=== PATIENT | male | born 1950 | race Caucasian/White ===

== ENCOUNTER 2016-03-28 10:15 | Outpatient (CLI) | payer MEDICARE, MEDICAID | END 2016-03-28 10:16 | disposition home or self-care (01) | DX: E11.65 Type 2 diabetes mellitus with hyperglycemia (principal); D50.0 Iron deficiency anemia secondary to blood loss (chronic) ==

== ENCOUNTER 2016-06-25 14:01 | Outpatient (CLI) | payer MEDICARE, MEDICAID | END 2016-06-25 14:02 | disposition home or self-care (01) | DX: E11.65 Type 2 diabetes mellitus with hyperglycemia (principal) ==

== ENCOUNTER 2017-01-28 08:00 | Outpatient (CLI) | payer MEDICARE, MEDICAID ==
[2017-01-28 13:08] LABS: BASOPHILS # (AUTO) 0.1 10^3/uL (0.0-0.1); BASOPHILS % (AUTO) 0.9 %; EOSINOPHILS # (AUTO) 0.4 10^3/uL (0.0-0.7); EOSINOPHILS % (AUTO) 4.9 %; HCT - HEMATOCRIT 42.1 % (42.0-52.0); HGB - HEMOGLOBIN 13.8 g/dL (14.0-18.0); LYMPHOCYTES # (AUTO) 1.3 10^3/uL (1.5-3.5); LYMPHOCYTES % (AUTO) 16.4 %; MEAN CORPUSCULAR HEMOGLOBIN 28.6 pg (27.0-31.0); MEAN CORPUSCULAR HGB CONC 32.6 g/dL (32.0-36.0); MEAN CORPUSCULAR VOLUME 87.6 fL (80.0-94.0); MEAN PLATELET VOLUME 7.7 fL (7.4-11.4); MONOCYTES # (AUTO) 0.6 10^3/uL (0.0-1.0); MONOCYTES % (AUTO) 7.7 %; NEUTROPHILS # (AUTO) 5.6 10^3/uL (1.5-6.6); NEUTROPHILS % (AUTO) 70.1 %; RED BLOOD COUNT 4.81 10^6/uL (4.70-6.10); RED CELL DISTRIBUTION WIDTH 14.1 % (12.0-15.0); UNCORRECTED WHITE BLOOD COUNT 8.1 x10^3/uL; WHITE BLOOD COUNT 8.1 x10^3/uL (4.8-10.8)
[2017-01-28 13:34] LABS: ALBUMIN/GLOBULIN RATIO 1.2 (1.0-2.2); BILIRUBIN,TOTAL 0.3 mg/dL (0.2-1.0); BUN - BLOOD UREA NITROGEN 32 mg/dL (6-20); CALCIUM 9.3 mg/dL (8.5-10.3); CARBON DIOXIDE - CO2 29 mmol/L (21-32); CHLORIDE 102 mmol/L (101-111); CHOL/HDL RATIO 4.8 (<5.0); CHOLESTEROL 144 mg/dL; CREATININE 1.3 mg/dL (0.6-1.2); GFR - MDRD 55 (>89); GLUCOSE 122 mg/dL (70-100); HDL CHOLESTEROL 30 mg/dL; LDL/HDL RATIO 3.1 (<3.6); POTASSIUM 4.8 mmol/L (3.5-5.0); SODIUM 137 mmol/L (135-145); TOTAL PROTEIN 7.4 g/dL (6.7-8.2); TRIGLYCERIDES 111 mg/dL; VLDL CHOLESTEROL 22 mg/dL
[2017-01-28 14:06] LABS: HEMOGLOBIN A1C 0.89 g/dL
== END 2017-01-28 08:01 | disposition home or self-care (01) ==
LOC: LAB.WCP 08:00
PROVIDERS: ATTEND Physician Assistant Medical
DX: E11.65 Type 2 diabetes mellitus with hyperglycemia (principal); D50.0 Iron deficiency anemia secondary to blood loss (chronic); Z12.5 Encounter for screening for malignant neoplasm of prostate
CPT/HCPCS: 36415; 80053; 80061; 83036; 85025; G0103; 84153

== ENCOUNTER 2017-10-07 08:47 | Outpatient (CLI) | payer MEDICARE, MEDICAID ==
[2017-10-07 13:30] LABS: CREATININE 1.1 mg/dL (0.6-1.2)
[2017-10-07 13:43] LABS: HB2 TOTAL 13.7 g/dL; HEMOGLOBIN A1C 1.11 g/dL; HEMOGLOBIN A1C % 9.6 % (4.6-6.2)
== END 2017-10-07 08:48 | disposition home or self-care (01) ==
LOC: LAB.WCP 08:47
PROVIDERS: ATTEND Physician Assistant Medical
DX: E11.65 Type 2 diabetes mellitus with hyperglycemia (principal)
CPT/HCPCS: 36415; 80048; 83036

== ENCOUNTER 2018-05-01 10:36 | Outpatient (CLI) | payer MEDICARE, MEDICAID ==
[2018-05-01 19:48] LABS: HB2 TOTAL 16.1 g/dL; HEMOGLOBIN A1C 1.35 g/dL; HEMOGLOBIN A1C % 9.8 % (4.6-6.2)
[2018-05-01 19:52] LABS: BUN - BLOOD UREA NITROGEN 31 mg/dL (6-20); CALCIUM 9.3 mg/dL (8.5-10.3); CARBON DIOXIDE - CO2 26 mmol/L (21-32); CHLORIDE 102 mmol/L (101-111); CHOL/HDL RATIO 4.6 (<5.0); CHOLESTEROL 138 mg/dL; CREATININE 1.2 mg/dL (0.6-1.2); GFR - MDRD 60 (>89); GLUCOSE 127 mg/dL (70-100); HDL CHOLESTEROL 30 mg/dL; LDL CHOLESTEROL,CALCULATED 91 mg/dL; SODIUM 135 mmol/L (135-145); VLDL CHOLESTEROL 17 mg/dL
== END 2018-05-01 10:37 | disposition home or self-care (01) ==
LOC: LAB.WCP 10:36
PROVIDERS: ATTEND Physician Assistant Medical
DX: E11.8 Type 2 diabetes mellitus with unspecified complications (principal); E78.5 Hyperlipidemia, unspecified; I10 Essential (primary) hypertension
CPT/HCPCS: 36415; 80048; 80061; 83036; 83721

== ENCOUNTER 2018-07-08 08:00 | Outpatient (CLI) | payer MEDICARE, MEDICAID ==
[2018-07-08 13:00] LABS: ALBUMIN 3.8 g/dL (3.2-5.5); ALBUMIN/GLOBULIN RATIO 1.1 (1.0-2.2); BILIRUBIN,TOTAL 0.6 mg/dL (0.2-1.0); CALCIUM 9.1 mg/dL (8.5-10.3); CREATININE 1.2 mg/dL (0.6-1.2); TOTAL PROTEIN 7.3 g/dL (6.7-8.2)
[2018-07-08 13:03] LABS: BASOPHILS # (AUTO) 0.1 10^3/uL (0.0-0.1); BASOPHILS % (AUTO) 0.9 %; EOSINOPHILS # (AUTO) 0.3 10^3/uL (0.0-0.7); EOSINOPHILS % (AUTO) 3.4 %; HGB - HEMOGLOBIN 13.9 g/dL (14.0-18.0); LYMPHOCYTES # (AUTO) 1.1 10^3/uL (1.5-3.5); LYMPHOCYTES % (AUTO) 12.7 %; MEAN CORPUSCULAR HEMOGLOBIN 28.3 pg (27.0-31.0); MEAN CORPUSCULAR HGB CONC 31.8 g/dL (32.0-36.0); MEAN PLATELET VOLUME 8.2 fL (7.4-11.4); MONOCYTES # (AUTO) 0.7 10^3/uL (0.0-1.0); MONOCYTES % (AUTO) 7.6 %; NEUTROPHILS # (AUTO) 6.7 10^3/uL (1.5-6.6); NEUTROPHILS % (AUTO) 75.4 %; PLT - PLATELET COUNT 337 10^3/uL (130-450); RED BLOOD COUNT 4.91 10^6/uL (4.70-6.10); RED CELL DISTRIBUTION WIDTH 14.3 % (12.0-15.0)
[2018-07-08 13:27] LABS: HB2 TOTAL 15.1 g/dL; HEMOGLOBIN A1C 1.18 g/dL; HEMOGLOBIN A1C % 9.3 % (4.6-6.2)
== END 2018-07-08 23:59 | disposition home or self-care (01) ==
LOC: LAB.WCP 08:00
PROVIDERS: ATTEND Physician Assistant Medical
DX: E11.9 Type 2 diabetes mellitus without complications (principal); D50.0 Iron deficiency anemia secondary to blood loss (chronic); Z12.5 Encounter for screening for malignant neoplasm of prostate
CPT/HCPCS: 36415; 83036; G0103; 80053; 84153; 84443; 85025

== ENCOUNTER 2018-10-24 08:00 | Outpatient (CLI) | payer MEDICARE, MEDICAID ==
[2018-10-24 12:17] LABS: CALCIUM 9.1 mg/dL (8.5-10.3); CREATININE 1.3 mg/dL (0.6-1.2)
[2018-10-24 12:30] LABS: HB2 TOTAL 14.7 g/dL; HEMOGLOBIN A1C 1.34 g/dL; HEMOGLOBIN A1C % 10.5 % (4.6-6.2)
== END 2018-10-24 23:59 | disposition home or self-care (01) ==
LOC: LAB.WCP 08:00
PROVIDERS: ATTEND Physician Assistant Medical
DX: E11.65 Type 2 diabetes mellitus with hyperglycemia (principal)
CPT/HCPCS: 36415; 80048; 83036

== ENCOUNTER 2019-01-22 07:00 | Outpatient (CLI) | payer MEDICARE, MEDICAID ==
[2019-01-22 13:22] LABS: BASOPHILS # (AUTO) 0.1 10^3/uL (0.0-0.1); BASOPHILS % (AUTO) 0.7 %; EOSINOPHILS # (AUTO) 0.5 10^3/uL (0.0-0.7); EOSINOPHILS % (AUTO) 5.9 %; HGB - HEMOGLOBIN 14.1 g/dL (14.0-18.0); LYMPHOCYTES # (AUTO) 1.1 10^3/uL (1.5-3.5); LYMPHOCYTES % (AUTO) 12.9 %; MEAN CORPUSCULAR HEMOGLOBIN 29.4 pg (27.0-31.0); MEAN CORPUSCULAR HGB CONC 31.7 g/dL (32.0-36.0); MEAN CORPUSCULAR VOLUME 92.7 fL (80.0-94.0); MEAN PLATELET VOLUME 9.5 fL (7.4-11.4); MONOCYTES # (AUTO) 0.8 10^3/uL (0.0-1.0); MONOCYTES % (AUTO) 9.8 %; NEUTROPHILS # (AUTO) 5.8 10^3/uL (1.5-6.6); NEUTROPHILS % (AUTO) 69.3 %; PLT - PLATELET COUNT 384 10^3/uL (130-450); RED CELL DISTRIBUTION WIDTH 13.4 % (12.0-15.0); WHITE BLOOD COUNT 8.4 x10^3/uL (4.8-10.8)
[2019-01-22 13:29] LABS: ALBUMIN/GLOBULIN RATIO 1.2 (1.0-2.2); ALKALINE PHOSPHATASE 78 IU/L (42-121); ALT ALANINE AMINOTRANSFERASE 17 IU/L (10-60); AST ASPARTATE AMINOTRANSFERASE 13 IU/L (10-42); BILIRUBIN,TOTAL 0.7 mg/dL (0.2-1.0); BUN - BLOOD UREA NITROGEN 28 mg/dL (6-20); CALCIUM 9.2 mg/dL (8.5-10.3); CARBON DIOXIDE - CO2 27 mmol/L (21-32); CHLORIDE 100 mmol/L (101-111); CHOLESTEROL 150 mg/dL; CREATININE 1.2 mg/dL (0.6-1.2); GFR - MDRD 60 (>89); GLUCOSE 187 mg/dL (70-100); HDL CHOLESTEROL 30 mg/dL; LDL CHOLESTEROL,CALCULATED 96 mg/dL; LDL/HDL RATIO 3.2 (<3.6); SODIUM 136 mmol/L (135-145); TOTAL PROTEIN 7.4 g/dL (6.7-8.2); VLDL CHOLESTEROL 24 mg/dL
[2019-01-22 13:31] LABS: HEMOGLOBIN A1C 0.93 g/dL; HEMOGLOBIN A1C % 8.2 % (4.6-6.2)
== END 2019-01-22 23:59 | disposition home or self-care (01) ==
LOC: LAB.WCP 07:00
PROVIDERS: ATTEND Physician Assistant Medical
DX: E78.5 Hyperlipidemia, unspecified (principal); E11.65 Type 2 diabetes mellitus with hyperglycemia; D50.0 Iron deficiency anemia secondary to blood loss (chronic)
CPT/HCPCS: 36415; 80053; 80061; 83036; 83721; 85025

== ENCOUNTER 2021-01-11 10:14 | Outpatient (CLI) | payer MEDICARE, MEDICAID ==
[2021-01-11 18:01] LABS: BASOPHILS # (AUTO) 0.1 10^3/uL (0.0-0.1); BASOPHILS % (AUTO) 0.5 %; EOSINOPHILS # (AUTO) 0.6 10^3/uL (0.0-0.7); EOSINOPHILS % (AUTO) 3.7 %; HCT - HEMATOCRIT 35.1 % (42.0-52.0); HGB - HEMOGLOBIN 10.8 g/dL (14.0-18.0); LYMPHOCYTES # (AUTO) 1.7 10^3/uL (1.5-3.5); LYMPHOCYTES % (AUTO) 10.3 %; MEAN CORPUSCULAR HEMOGLOBIN 28.6 pg (27.0-31.0); MEAN CORPUSCULAR HGB CONC 30.8 g/dL (32.0-36.0); MEAN CORPUSCULAR VOLUME 92.9 fL (80.0-94.0); MONOCYTES # (AUTO) 0.9 10^3/uL (0.0-1.0); MONOCYTES % (AUTO) 5.2 %; NEUTROPHILS # (AUTO) 13.1 10^3/uL (1.5-6.6); NEUTROPHILS % (AUTO) 78.8 %; PLT - PLATELET COUNT 402 10^3/uL (130-450); RED BLOOD COUNT 3.78 10^6/uL (4.70-6.10); RED CELL DISTRIBUTION WIDTH 12.4 % (12.0-15.0); WHITE BLOOD COUNT 16.7 x10^3/uL (4.8-10.8)
[2021-01-11 18:23] LABS: ALBUMIN 3.6 g/dL (3.2-5.5); ALBUMIN/GLOBULIN RATIO 1.1 (1.0-2.2); ALKALINE PHOSPHATASE 81 IU/L (42-121); ALT ALANINE AMINOTRANSFERASE 15 IU/L (10-60); AST ASPARTATE AMINOTRANSFERASE 12 IU/L (10-42); BILIRUBIN,TOTAL 0.6 mg/dL (0.2-1.0); BUN - BLOOD UREA NITROGEN 46 mg/dL (6-20); CALCIUM 9.1 mg/dL (8.5-10.3); CARBON DIOXIDE - CO2 28 mmol/L (21-32); CHLORIDE 98 mmol/L (101-111); CHOL/HDL RATIO 3.8 (<5.0); CHOLESTEROL 121 mg/dL; CREATININE 1.6 mg/dL (0.6-1.2); GFR - MDRD 43 (>89); GLUCOSE 313 mg/dL (70-100); HDL CHOLESTEROL 32 mg/dL; LDL CHOLESTEROL,CALCULATED 56 mg/dL; LDL/HDL RATIO 1.8 (<3.6); POTASSIUM 4.8 mmol/L (3.5-5.0); SODIUM 137 mmol/L (135-145); TRIGLYCERIDES 165 mg/dL; VLDL CHOLESTEROL 33 mg/dL
[2021-01-11 18:28] LABS: THYROID STIMULATING HORMONE 2.12 uIU/mL (0.34-5.60)
[2021-01-11 20:11] LABS: ESTIMATED AVERAGE GLUCOSE 355 mg/dL (70-100)
== END 2021-01-11 23:59 | disposition home or self-care (01) ==
LOC: LAB.WCP 10:14
PROVIDERS: ATTEND Physician Assistant Medical
DX: E11.8 Type 2 diabetes mellitus with unspecified complications (principal); D50.0 Iron deficiency anemia secondary to blood loss (chronic)
CPT/HCPCS: 36415; 80053; 80061; 83036; 83721; 84443; 85025

== ENCOUNTER 2021-04-20 10:02 | Outpatient (CLI) | payer MEDICARE, MEDICAID ==
[2021-04-20 12:56] LABS: BASOPHILS # (AUTO) 0.1 10^3/uL (0.0-0.1); BASOPHILS % (AUTO) 0.6 %; EOSINOPHILS # (AUTO) 0.3 10^3/uL (0.0-0.7); EOSINOPHILS % (AUTO) 3.7 %; HCT - HEMATOCRIT 39.1 % (42.0-52.0); HGB - HEMOGLOBIN 12.4 g/dL (14.0-18.0); LYMPHOCYTES % (AUTO) 11.4 %; MEAN CORPUSCULAR HEMOGLOBIN 27.3 pg (27.0-31.0); MEAN CORPUSCULAR HGB CONC 31.7 g/dL (32.0-36.0); MEAN CORPUSCULAR VOLUME 86.1 fL (80.0-94.0); MEAN PLATELET VOLUME 10.3 fL (7.4-11.4); MONOCYTES # (AUTO) 0.6 10^3/uL (0.0-1.0); MONOCYTES % (AUTO) 7.2 %; NEUTROPHILS # (AUTO) 6.7 10^3/uL (1.5-6.6); NEUTROPHILS % (AUTO) 76.1 %; PLT - PLATELET COUNT 377 10^3/uL (130-450); RED BLOOD COUNT 4.54 10^6/uL (4.70-6.10); RED CELL DISTRIBUTION WIDTH 12.7 % (12.0-15.0); WHITE BLOOD COUNT 8.9 x10^3/uL (4.8-10.8)
[2021-04-20 13:04] LABS: CREATININE 2.4 mg/dL (0.6-1.2); ESTIMATED AVERAGE GLUCOSE 355 mg/dL (70-100); POTASSIUM 4.5 mmol/L (3.5-5.0)
== END 2021-04-20 10:03 | disposition home or self-care (01) ==
LOC: LAB.N 10:02
PROVIDERS: ATTEND Physician Assistant Medical
DX: E11.22 Type 2 diabetes mellitus with diabetic chronic kidney disease (principal); E11.8 Type 2 diabetes mellitus with unspecified complications; N18.9 Chronic kidney disease, unspecified; D72.829 Elevated white blood cell count, unspecified
CPT/HCPCS: 36415; 80048; 83036; 85025

== ENCOUNTER 2021-05-15 11:31 | Outpatient (CLI) | payer MEDICARE, MEDICAID ==
[2021-05-15 18:14] LABS: CALCIUM 9.2 mg/dL (8.5-10.3); POTASSIUM 4.8 mmol/L (3.5-5.0)
== END 2021-05-15 11:32 | disposition home or self-care (01) ==
LOC: LAB.N 11:31
PROVIDERS: ATTEND Physician Assistant Medical
DX: N18.9 Chronic kidney disease, unspecified (principal)
CPT/HCPCS: 36415; 80048

== ENCOUNTER 2021-07-13 11:22 | Outpatient (CLI) | payer MEDICARE, MEDICAID ==
[2021-07-13 18:00] LABS: BASOPHILS # (AUTO) 0.1 10^3/uL (0.0-0.1); BASOPHILS % (AUTO) 0.9 %; EOSINOPHILS # (AUTO) 0.2 10^3/uL (0.0-0.7); EOSINOPHILS % (AUTO) 2.4 %; HCT - HEMATOCRIT 33.3 % (42.0-52.0); HGB - HEMOGLOBIN 10.3 g/dL (14.0-18.0); LYMPHOCYTES # (AUTO) 0.8 10^3/uL (1.5-3.5); MEAN CORPUSCULAR HEMOGLOBIN 27.4 pg (27.0-31.0); MEAN CORPUSCULAR HGB CONC 30.9 g/dL (32.0-36.0); MEAN CORPUSCULAR VOLUME 88.6 fL (80.0-94.0); MEAN PLATELET VOLUME 10.7 fL (7.4-11.4); MONOCYTES # (AUTO) 0.7 10^3/uL (0.0-1.0); MONOCYTES % (AUTO) 7.3 %; NEUTROPHILS # (AUTO) 7.6 10^3/uL (1.5-6.6); NEUTROPHILS % (AUTO) 80.8 %; PLT - PLATELET COUNT 372 10^3/uL (130-450); RED BLOOD COUNT 3.76 10^6/uL (4.70-6.10); RED CELL DISTRIBUTION WIDTH 14.9 % (12.0-15.0); WHITE BLOOD COUNT 9.4 x10^3/uL (4.8-10.8)
[2021-07-13 18:04] LABS: ALBUMIN 3.4 g/dL (3.2-5.5); ALBUMIN/GLOBULIN RATIO 0.9 (1.0-2.2); ALKALINE PHOSPHATASE 98 IU/L (42-121); ALT ALANINE AMINOTRANSFERASE 20 IU/L (10-60); AST ASPARTATE AMINOTRANSFERASE 20 IU/L (10-42); BILIRUBIN,TOTAL 0.7 mg/dL (0.2-1.0); BUN - BLOOD UREA NITROGEN 44 mg/dL (6-20); CALCIUM 8.7 mg/dL (8.5-10.3); CARBON DIOXIDE - CO2 22 mmol/L (21-32); CHLORIDE 108 mmol/L (101-111); CHOL/HDL RATIO 3.2 (<5.0); CHOLESTEROL 117 mg/dL; CREATININE 2.1 mg/dL (0.6-1.2); GFR - MDRD 31 (>89); GLUCOSE 100 mg/dL (70-100); HDL CHOLESTEROL 37 mg/dL; LDL CHOLESTEROL,CALCULATED 70 mg/dL; LDL/HDL RATIO 1.9 (<3.6); POTASSIUM 4.7 mmol/L (3.5-5.0); SODIUM 140 mmol/L (135-145); TOTAL PROTEIN 7.4 g/dL (6.7-8.2); TRIGLYCERIDES 52 mg/dL; VLDL CHOLESTEROL 10 mg/dL
[2021-07-13 21:05] LABS: ESTIMATED AVERAGE GLUCOSE 200 mg/dL (70-100); HEMOGLOBIN A1c% 8.6 % (4.27-6.07)
== END 2021-07-13 11:23 | disposition home or self-care (01) ==
LOC: LAB.N 11:22
PROVIDERS: ATTEND Physician Assistant Medical
DX: E11.8 Type 2 diabetes mellitus with unspecified complications (principal); E78.5 Hyperlipidemia, unspecified; D50.0 Iron deficiency anemia secondary to blood loss (chronic)
CPT/HCPCS: 36415; 80053; 80061; 83036; 83721; 85025

== ENCOUNTER 2021-07-16 12:59 | Inpatient (IN) | payer MEDICARE, MEDICAID ==
--- NOTE | 2021-07-16 13:09 | ED Physician Documentation ---
PD HPI DYSPNEA - Stated complaint Stated Complaint: SOA - Chief complaint Chief Complaint: Resp - History obtained from History obtained from: Patient - History of Present Illness Timing - onset: How many days ago (5-6) Timing - onset during: Light activity, Exertion (initially with activity, now with just walking to bathroom.) Timing - duration: Days Timing - details: Gradual onset, Still present Inciting event(s): No: URI Improved by: Rest Worsened by: Exertion, Laying flat Associated symptoms: Bilateral edema (mild). No: Fever, Cough, Wheezing, Palpitations Similar symptoms before: Diagnosis (had pneumonia with empyema in 2014-mita. No recent dyspnea symptoms prior to this past week.) Recently seen: Not recently seen Review of Systems Constitutional: denies: Fever, Chills Nose: denies: Rhinorrhea / runny nose, Congestion Throat: denies: Sore throat Cardiac: reports: Chest pain / pressure, Pedal edema. denies: Palpitations, Calf pain Respiratory: reports: Dyspnea. denies: Cough GI: denies: Abdominal Pain, Nausea, Vomiting, Diarrhea, Bloody / black stool Musculoskeletal: reports: Extremity swelling (bilateral leg edema the past few weeks.) Neurologic: reports: Generalized weakness. denies: Near syncope, Altered mental status, Headache Immunocompromised: denies: Immunocompromised PD PAST MEDICAL HISTORY - Past Medical History Cardiovascular: Hypertension, High cholesterol, Other (no known history of atrial fib. ) Respiratory: Other Endocrine/Autoimmune: Type 2 diabetes GI: None : None HEENT: None Psych: None Musculoskeletal: None - Past Surgical History Past Surgical History: No - Present Medications Home Medications: Ambulatory Orders Medication Instructions Recorded Confirmed Aspirin [Aspir 81] 81 mg PO DAILY 07/30/13 11/06/18 Felodipine [Felodipine ER] 10 mg PO DAILY 07/30/13 11/06/18 Ferrous Sulfate 325 mg PO DAILY 07/30/13 11/06/18 Losartan [Cozaar] 50 mg PO DAILY 07/30/13 11/06/18 Metformin HCl 500 mg PO BIDWM 07/30/13 11/06/18 Simvastatin [Zocor] 40 mg PO DAILY 07/30/13 11/06/18 hydroCHLOROthiazide 25 mg PO DAILY 07/30/13 11/06/18 [Hydrochlorothiazide] Canagliflozin [Invokana] 300 mg PO DAILY 05/02/16 11/06/18 Fluticasone [Flonase] 1 sprays KRISTAL BID PRN 05/02/16 11/06/18 Cyanocobalamin (Vitamin B-12) 1,000 mcg PO DAILY 11/06/18 11/06/18 [Vitamin B-12] Insulin Aspart [NovoLOG] 2 - 20 units SUBQ BIDWM 11/06/18 11/06/18 Insulin Glargine,Hum.rec.anlog 65 unit SUBQ QDBREAKFAST 11/06/18 11/06/18 [Basaglar Kwikpen U-100] - Allergies Allergies/Adverse Reactions: Allergies Allergy/AdvReac Type Severity Reaction Status Date / Time No Known Drug Allergies Allergy Verified 07/16/21 13:01 - Living Situation Living Situation: reports: Alone Living Arrangement: reports: At home (lives in a single wide trailer by himself. He says he does his own ADLs.) - Social History Does the pt smoke?: Yes Smoking Status: Former smoker Does the pt drink ETOH?: Yes Does the pt have substance abuse?: No - Family History Family history: reports: CAD - Immunizations Immunizations are current?: Yes PD ED PE NORMAL - Vitals Vital signs reviewed: Yes (hypoxic on RA) - General General: Alert and oriented X 3, Well developed/nourished (long, uncombed hair, but otherwise clean. ) - HEENT HEENT: Moist mucous membranes, Pharynx benign - Neck Neck: Supple, no meningeal sign, No adenopathy - Cardiac Cardiac: No: RRR (irregular but rate 90-105) - Respiratory Respiratory: Other (sitting up most comfortable position.). No: Clear bilaterally (Bibasilar crackles about a third [address] way on both sides. Some slight diminished on the right base. No wheezes noted. No prolonged expirations.) - Abdomen Abdomen: Soft, Non tender - Male Male : Deferred - Rectal Rectal: Deferred - Back Back: No CVA TTP - Derm Derm: Normal color, Warm and dry - Extremities Extremities: No calf tenderness / cord, Other (1+ edema in both lower legs/shins. ) - Neuro Neuro: Alert and oriented X 3, No motor deficit, Normal speech Results - Vitals Vitals: Vital Signs - 24 hr 05/04/0807/16/21 07/16/21 13:01 13:31 13:35 Temperature 36.5 C Heart Rate 100 Respiratory 22 Rate Blood Pressure 134/90 H O2 Saturation 92 85 L 88 L 07/16/21 07/16/21 07/16/21 13:42 13:56 14:15 Temperature Heart Rate 92 Respiratory 16 Rate Blood Pressure O2 Saturation 91 L 94 07/16/21 15:06 Temperature Heart Rate 96 Respiratory 24 Rate Blood Pressure 149/84 H O2 Saturation 97 Oxygen O2 Source Nasal cannula Oxygen Flow Rate 4 - EKG (time done) 14:11 Rate: Rate (enter#) (83) Rhythm: Atrial fibrillation [place]: Normal QRS: Normal Ischemia: Normal ST segments. No: ST elevation c/w ischemia, ST depression - Labs Labs: Laboratory Tests 07/16/21 07/16/21 07/16/21 14:00 14:00 14:00 WBC 8.9 RBC 3.65 L Hgb 10.1 L Hct 32.2 L MCV 88.2 MCH 27.7 MCHC 31.4 L RDW 15.2 H Plt Count 358 MPV 9.8 Neut # (Auto) 7.1 H Lymph # (Auto) 0.9 L Christian # (Auto) 0.6 Eos # (Auto) 0.1 Baso # (Auto) 0.1 Absolute Nucleated RBC 0.00 Nucleated RBC % 0.0 Sodium 137 Potassium 4.6 Chloride 105 Carbon Dioxide 22 Anion Gap 10.0 BUN 41 H Creatinine 2.0 H Estimated GFR (MDRD) 33 L Glucose 325 H Calcium 8.5 Magnesium 1.9 Total Bilirubin 0.5 AST 18 ALT 21 Alkaline Phosphatase 94 Troponin I High Sens 49.3 H* B-Natriuretic Peptide Total Protein 7.1 Albumin 3.3 Globulin 3.8 Albumin/Globulin Ratio 0.9 L Lipase 39 Nasal Adenovirus (PCR) Nasal B. parapertussis DNA (PCR) Nasal Coronavir 229E PCR Nasal Coronavir HKU1 PCR Nasal Coronavir NL63 PCR Nasal Coronavir OC43 PCR Nasal Enterovir/Rhinovir PCR Nasal Influenza B PCR Nasal Influenza A PCR Nasal Parainfluen 1 PCR Nasal Parainfluen 2 PCR Nasal Parainfluen 3 PCR Nasal Parainfluen 4 PCR Nasal RSV (PCR) Nasal B.pertussis DNA PCR Nasal C.pneumoniae (PCR) Kristal Human Metapneumo PCR Nasal M.pneumoniae (PCR) Nasal SARS-CoV-2 (PCR) 07/16/21 07/16/21 14:00 14:04 WBC RBC Hgb Hct MCV MCH MCHC RDW Plt Count MPV Neut # (Auto) Lymph # (Auto) Christian # (Auto) Eos # (Auto) Baso # (Auto) Absolute Nucleated RBC Nucleated RBC % Sodium Potassium Chloride Carbon Dioxide Anion Gap BUN Creatinine Estimated GFR (MDRD) Glucose Calcium Magnesium Total Bilirubin AST ALT Alkaline Phosphatase Troponin I High Sens B-Natriuretic Peptide 929 H Total Protein Albumin Globulin Albumin/Globulin Ratio Lipase Nasal Adenovirus (PCR) NOT DETECTED Nasal B. parapertussis DNA (PCR) NOT DETECTED Nasal Coronavir 229E PCR NOT DETECTED Nasal Coronavir HKU1 PCR NOT DETECTED Nasal Coronavir NL63 PCR NOT DETECTED Nasal Coronavir OC43 PCR NOT DETECTED Nasal Enterovir/Rhinovir PCR NOT DETECTED Nasal Influenza B PCR NOT DETECTED Nasal Influenza A PCR NOT DETECTED Nasal Parainfluen 1 PCR NOT DETECTED Nasal Parainfluen 2 PCR NOT DETECTED Nasal Parainfluen 3 PCR NOT DETECTED Nasal Parainfluen 4 PCR NOT DETECTED Nasal RSV (PCR) NOT DETECTED Nasal B.pertussis DNA PCR NOT DETECTED Nasal C.pneumoniae (PCR) NOT DETECTED Kristal Human Metapneumo PCR NOT DETECTED Nasal M.pneumoniae (PCR) NOT DETECTED Nasal SARS-CoV-2 (PCR) NOT DETECTED - Rads (name of study) chest xray Radiology: Prelim report reviewed (lower lungs congestion versus atelectasis. bilateral edema vs pneumonia. ), See rad report PD MEDICAL DECISION MAKING - ED course Complexity details: reviewed results, re-evaluated patient (I talked with the patient specifically about further work-up to include assessment of the heart but also main focus of symptom treatment with diuresis and rate control of his fibrillation. HR did increase to over 100 and given Diltiazem dose. Had given Lasix prior x 2 doses and did get about 600 ml ), considered differential, d/w patient ED course: We do not have echocardiogram available at our facility. At request of Hospitalist, I talked specifically with the patient about options: 1. symptom treatment with diuresis and control of his A. fib and potential stress testing of the heart and subsequent outpatient follow-up for echocardiogram, versus 2. the other option of being transferred to another facility for all of those testings together. He states his preference would be to stay here at [facility] and have outpatient echocardiogram later. Departure - Departure Disposition: ED Place in Observation Clinical Impression: Hypoxemia Dyspnea Qualifiers: Dyspnea type: shortness of breath Qualified Code(s): R06.02 - Shortness of breath Congestive heart failure (CHF) Qualifiers: Heart failure type: unspecified Heart failure chronicity: unspecified Qualified Code(s): I50.9 - Heart failure, unspecified Atrial fibrillation Qualifiers: Atrial fibrillation type: unspecified Qualified Code(s): I48.91 - Unspecified atrial fibrillation Condition: Stable Record reviewed to determine appropriate education?: Yes Discharge Date/Time: 07/16/21 17:51
[2021-07-16] MEDS ORDERED: ALBUTEROL NEB 2.5 MG/3 ML INH STA (13:45)
[2021-07-16 14:10] LABS: BASOPHILS # (AUTO) 0.1 10^3/uL (0.0-0.1); BASOPHILS % (AUTO) 0.7 %; EOSINOPHILS # (AUTO) 0.1 10^3/uL (0.0-0.7); EOSINOPHILS % (AUTO) 1.6 %; HCT - HEMATOCRIT 32.2 % (42.0-52.0); HGB - HEMOGLOBIN 10.1 g/dL (14.0-18.0); LYMPHOCYTES # (AUTO) 0.9 10^3/uL (1.5-3.5); LYMPHOCYTES % (AUTO) 10.2 %; MEAN CORPUSCULAR HEMOGLOBIN 27.7 pg (27.0-31.0); MEAN CORPUSCULAR HGB CONC 31.4 g/dL (32.0-36.0); MEAN CORPUSCULAR VOLUME 88.2 fL (80.0-94.0); MEAN PLATELET VOLUME 9.8 fL (7.4-11.4); MONOCYTES # (AUTO) 0.6 10^3/uL (0.0-1.0); NEUTROPHILS # (AUTO) 7.1 10^3/uL (1.5-6.6); NEUTROPHILS % (AUTO) 79.9 %; PLT - PLATELET COUNT 358 10^3/uL (130-450); RED BLOOD COUNT 3.65 10^6/uL (4.70-6.10); RED CELL DISTRIBUTION WIDTH 15.2 % (12.0-15.0); WHITE BLOOD COUNT 8.9 x10^3/uL (4.8-10.8)
--- NOTE | 2021-07-16 14:14 | XRAY Report ---
PROCEDURE: Chest 1 View X-Ray INDICATIONS: chest pain TECHNIQUE: One view of the chest was acquired. COMPARISON: 07/30/2013 FINDINGS: Surgical changes and devices: None. Lungs and pleura: No pneumothorax. Small right pleural effusion. Moderate bilateral perihilar and bas ilar reticulonodular and air space opacities. Mediastinum: Mediastinal contours appear normal. Heart size is normal. Bones and chest wall: No suspicious bony lesions. Overlying soft tissues appear unremarkable. IMPRESSION: 1. Bibasilar pneumonia versus atelectasis. 2. Small right pleural effusion. 3. Bilateral edema versus atypical pneumonia. Reviewed by: Juice Cope MD on 07/16/2021 2:13 PM PDT Approved by: Juice Cope MD on 07/16/2021 2:13 PM PDT Station ID: [id number]
[2021-07-16] MEDS ORDERED: FUROSEMIDE 40 MG/4 ML VIAL IVP STA ×2 (14:24→15:21)
[2021-07-16] MEDS ORDERED: NITROGLYCERIN SL 0.4 MG TABLET SL STA (14:24)
[2021-07-16 14:26] LABS: ALBUMIN 3.3 g/dL (3.2-5.5); ALBUMIN/GLOBULIN RATIO 0.9 (1.0-2.2); BILIRUBIN,TOTAL 0.5 mg/dL (0.2-1.0); CALCIUM 8.5 mg/dL (8.5-10.3); MAGNESIUM 1.9 mg/dL (1.7-2.8); POTASSIUM 4.6 mmol/L (3.5-5.0); TOTAL PROTEIN 7.1 g/dL (6.7-8.2)
[2021-07-16 16:26] LABS: B. PARAPERTUSSIS- RESP PCR PAN NOT DETECTED; B. PERTUSSIS- RESP PCR PANEL NOT DETECTED; C. PNEUMONIAE- RESP PCR PANEL NOT DETECTED; CORONAVIRUS 229E-RESP PCR NOT DETECTED; CORONAVIRUS HKU1-RESP PCR NOT DETECTED; CORONAVIRUS NL63-RESP PCR NOT DETECTED; CORONAVIRUS OC43-RESP PCR NOT DETECTED; HUMAN METAPNEUMOVIRUS NOT DETECTED; INFLUENZA A- RESP PCR PANEL NOT DETECTED; INFLUENZA B - RESP PCR PANEL NOT DETECTED; M. PNEUMONIAE- RESP PCR PANEL NOT DETECTED; PARAINFLUENZA VIRUS 1 NOT DETECTED; PARAINFLUENZA VIRUS 2 NOT DETECTED; PARAINFLUENZA VIRUS 3 NOT DETECTED; PARAINFLUENZA VIRUS 4 NOT DETECTED; RHINOVIRUS/ENTEROVIRUS NOT DETECTED; RSV- RESP PCR PANEL NOT DETECTED; SARS-CoV-2 -RESP PCR PANEL NOT DETECTED
[2021-07-16] MEDS ORDERED: MAGNESIUM SULFATE 2 GRAM 2 GM/50 ML BAG IV ONE (16:27)
[2021-07-16] MEDS ORDERED: diltiaZEM INJ 5 MG/ML VIAL IVP STA (16:27)
[2021-07-16] MEDS ORDERED: oxyCODONE 5 MG TABLET PO PRN (16:29)
[2021-07-16] MEDS ORDERED: ACETAMINOPHEN 325 MG TABLET PO PRN (16:29)
[2021-07-16] MEDS ORDERED: SODIUM CHLORIDE FLUSH 0.9% 10 ML SYRINGE IVP PRN (16:29)
[2021-07-16] MEDS ORDERED: ONDANSETRON ODT 4 MG TABLET TL PRN (16:29)
[2021-07-16] MEDS ORDERED: ONDANSETRON 4 MG/2 ML VIAL IVP PRN (16:29)
--- NOTE | 2021-07-16 17:30 | HISTORY & PHYSICAL EXAMINATION ---
Chief Complaint - Chief Complaint Chief Complaint: SOB History of Present Illness - Admitted From Admitted From:: Home - History Obtained From History obtained from: Patient, patient's sister, EMAR - History of Present Illness HPI Comment/Other: Pt is a 70 year old male who presented to the ED with a c/o of SOB. Pt reports that SOB has been worsening for the past week at first with activity, then at rest. Pt does not report chest pain, cough, or edema at any location. Pt does report increasing bouts of dizziness and fatigue. Pt's oxygen saturation in the ED was 88% and improved to 96% on 4L. Pt is a reliable and motivated historian. He is sitting up in the stretcher and is able to speak in clear sentences. History - Past Medical History Cardiovascular: reports: Hypertension, High cholesterol, Other (new onset) Respiratory: reports: Other Endocrine/Autoimmune: reports: Type 2 diabetes GI: reports: None : reports: None HEENT: reports: None Psych: reports: None Musculoskeletal: reports: None, Other (neuropathy r/t DM) MRSA Hx?: No - Past Surgical History General: reports: Other (Empyema drained in 2014) - Family & Social History Family History: Mother: , Father: , CVA/TIA, Sister: Alive and Well (hx of DM), Brother: Living arrangement: At home, Other (in trailer on friend's property) Living Situation: Alone, Other (lives with pet parrot named Floyd) Social History Notes: Pt was born in [place]. Pt lived in [place] last year and has been living in a trailer on his friend's property with his pet parrot named Floyd for the past year. 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 His sister, Cecelia also lives on the [place]. - Substance History Use: Uses substance without health or social issues: Tobacco, Other (Pt smoked for 50 years and quit in 2013) Abuse: Recurrent use of substance despite neg consequences: NONE Dependence: Experiences withdrawal or developed tolerances: NONE Tobacco Details: Cigarettes, Occupational Exposure - POLST Patient has POLST: No POLST Status: Full Code Meds/Allgy - Home Medications Home Medications: Ambulatory Orders Medication Instructions Recorded Confirmed Aspirin [Aspir 81] 81 mg PO DAILY 07/30/13 11/06/18 Felodipine [Felodipine ER] 10 mg PO DAILY 07/30/13 11/06/18 Ferrous Sulfate 325 mg PO DAILY 07/30/13 11/06/18 Losartan [Cozaar] 50 mg PO DAILY 07/30/13 11/06/18 Metformin HCl 500 mg PO BIDWM 07/30/13 11/06/18 Simvastatin [Zocor] 40 mg PO DAILY 07/30/13 11/06/18 hydroCHLOROthiazide 25 mg PO DAILY 07/30/13 11/06/18 [Hydrochlorothiazide] Canagliflozin [Invokana] 300 mg PO DAILY 05/02/16 11/06/18 Fluticasone [Flonase] 1 sprays KRISTAL BID PRN 05/02/16 11/06/18 Cyanocobalamin (Vitamin B-12) 1,000 mcg PO DAILY 11/06/18 11/06/18 [Vitamin B-12] Insulin Aspart [NovoLOG] 2 - 20 units SUBQ BIDWM 11/06/18 11/06/18 Insulin Glargine,Hum.rec.anlog 65 unit SUBQ QDBREAKFAST 11/06/18 11/06/18 [Basaglar Kwikpen U-100] - Allergies Allergies/Adverse Reactions: Allergies Allergy/AdvReac Type Severity Reaction Status Date / Time No Known Drug Allergies Allergy Verified 07/16/21 13:01 Review of Systems - Constitutional Constitutional: reports: Fatigue, Malaise, Weakness - Eyes Eyes: reports: Corrective lenses - Ears, Nose & Throat Ears, Nose & Throat: reports: Other (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 Pt also was not orthopneic. Exam - Vital Signs Vital Signs: Vital Signs x48h Temp Pulse Resp BP Pulse Ox 07/16/21 17:14 36.3 C L 91 17 135/82 H 93 07/16/21 17:00 97 29 H 133/113 H 99 07/16/21 15:06 96 24 149/84 H 97 07/16/21 14:15 92 16 07/16/21 13:56 94 07/16/21 13:42 91 L 07/16/21 13:35 88 L 07/16/21 13:31 85 L 07/16/21 13:01 36.5 C 100 22 134/90 H 92 - Physical Exam General Appearance: positive: No acute distress, Alert Eyes Bilateral: positive: Normal inspection, PERRL, EOMI ENT: positive: ENT inspection nml Neck: positive: Nml inspection, Thyroid nml, No JVD Respiratory: positive: Chest non-tender, Other (Lung sounds are diminished, increased work of breathing that is relieved with sitting up) Cardiovascular: positive: No murmur, Irregularly irregular Peripheral Pulses: positive: 2+ Abdomen: positive: Non-tender, No organomegaly, Nml bowel sounds Back: positive: Nml inspection Skin: positive: Color nml Extremities: positive: Full ROM, Nml appearance, Other (neuropathy in upper extremities related to DM) Neurologic/Psychiatric: positive: Oriented x3, Mood/affect nml Conclusion/Plan - Problem List (1) Acute CHF (congestive heart failure) Conclusion/Plan: Pt's BNP is elevated at 929. Pt's troponin has increased from 49.3 to 54.4 in four hours. Pt reports increasingly dyspneic and orthopneic over the course of a week. Pt needing supplemental oxygen to maintain O2 saturation over 92%. No edema noted by patient and upon exam. Plan: 1. IV lasix 2. Stress test 3. reassess BNP Qualifiers: Heart failure type: unspecified Qualified Code(s): I50.9 - Heart failure, unspecified (2) Atrial fibrillation Conclusion/Plan: New onset atrial fibrillation Plan: 1. Assess d-dimer and TSH 2. Rate control with metoporol BID 25mg PO 3. Anticoagulate with eliquis Qualifiers: Atrial fibrillation type: unspecified Qualified Code(s): I48.91 - Unspecified atrial fibrillation (3) Dyspnea due to congestive heart failure Conclusion/Plan: Pt is on oxygen at this time with slightly increased work of breathing that is relieved by sitting upright. Plan: 1. Wean oxygen as needed 2. IV diuretics to offload fluid (4) Diabetes mellitus type 2 with complications, uncontrolled Conclusion/Plan: Pt is hyperglycemic 325. BUN and creatinine are elevated. Pt also peripheral neuropathy that has been ongoing for an unspecific amount of time. Plan: 1. BS control - sliding scale insulin 2. recheck BS - Lab Results Fish Bones: 07/16/21 14:00 07/16/21 14:00 Core Measures - Anticipated LOS I expect patient to be DC'd or transferred within 96 hours.: Yes - DVT/VTE - Prophylaxis VTE/DVT Prophylaxis med ordered at admit?: Yes
[2021-07-16] MEDS: METOPROLOL TARTRATE 25 MG TABLET PO SCH (20:27)
[2021-07-16] MEDS: APIXABAN 5 MG TABLET PO SCH (20:27)
[2021-07-16] MEDS: FUROSEMIDE 20 MG/2 ML VIAL IVP SCH (20:27)
[2021-07-16] MEDS: SODIUM CHLORIDE FLUSH 0.9% 10 ML SYRINGE IVP SCH (20:27)
[2021-07-16] MEDS ORDERED: INSULIN ASPART 300 UNIT/3 ML PEN SUBQ ONE (22:56)
[2021-07-17] MEDS: SODIUM CHLORIDE FLUSH 0.9% 10 ML SYRINGE IVP SCH ×3 (01:05→18:18)
[2021-07-17] MEDS: FUROSEMIDE 20 MG/2 ML VIAL IVP SCH ×2 (06:11→13:51)
[2021-07-17] MEDS: INSULIN ASPART 300 UNIT/3 ML PEN SUBQ SCH ×4 (07:47→21:07)
[2021-07-17] MEDS ORDERED: INSULIN GLARGINE 300 UNIT/3 ML PEN SUBQ SCH (08:00)
[2021-07-17] MEDS ORDERED: INSULIN ASPART 300 UNIT/3 ML PEN SUBQ SCH (08:00)
[2021-07-17] MEDS: APIXABAN 5 MG TABLET PO SCH ×2 (10:24→21:07)
[2021-07-17] MEDS: METOPROLOL TARTRATE 25 MG TABLET PO SCH ×2 (10:24→10:42)
[2021-07-17 11:14] LABS: CALCIUM 8.6 mg/dL (8.5-10.3); CREATININE 2.4 mg/dL (0.6-1.2); POTASSIUM 4.8 mmol/L (3.5-5.0)
--- NOTE | 2021-07-17 11:25 | PHARMACY PROGRESS NOTE ---
- Best Possible Medication History Admit Date and Time: 07/16/21 1629 Processed by: Pharmacy Medication History completed: Yes Patient Interview: Completed Secondary Source(s): Physician records, Pharmacy records, Insurance records As the person ultimately responsible for medication therapy, providers are able to order a medication from an existing home medication list in [facility] via the "Reconcile Routine" prior to Confirmation of that medication by product support analyst. Such practice is discouraged except when the physician, in their clinical judgment, deems that a medical need exists for a medication without regard to previous use.
[2021-07-17] MEDS ORDERED: REGADENOSON 0.4 MG/5 ML SYRINGE IVP ONE ×2 (11:52→13:13)
--- NOTE | 2021-07-17 14:19 | PROVIDER PROGRESS NOTE ---
Subjective - Prog Note Date Prog Note Date: 07/17/21 Prog Note Time: 14:17 - Subjective Subjective: When he came into the hospital yesterday just getting out of bed to speak to us cause him to be tachypneic and struggle to breathe. Between yesterday and today he is improved enough that he can walk to the bathroom but by the time he gets back in bed he is tachypneic. Takes him about 2 to 3 minutes to recover. His baseline is to be able to walk at least 30 feet in his trailer without dyspnea. All of this started a week ago and been getting gradually worse. Urine output yesterday was 1830. Urine output as of this afternoon is 1250. His weight on admission was 104.5 kg. Weight for today has not been recorded. Current Medications - Current Medications Current Medications: Active Medications Acetaminophen (Acetaminophen 325 Mg Tablet) 650 mg PO Q4HR PRN PRN Reason: Pain 1 to 4, or Fever Apixaban (Apixaban 5 Mg Tablet) 5 mg PO BID [facility] Last Admin: 07/17/21 10:24 Dose: 5 mg Furosemide (Furosemide 20 Mg/2 Ml Vial) 20 mg IVP BIDDIURETIC [facility] Last Admin: 07/17/21 13:51 Dose: 20 mg Insulin Aspart (Insulin Aspart 300 Unit/3 Ml Pen) 1 - 9 unit SUBQ 0800,1200,1700,2100 [facility]; Protocol Last Admin: 07/17/21 12:51 Dose: 1 unit Metoprolol Tartrate (Metoprolol Tartrate 25 Mg Tablet) 25 mg PO BID [facility] Last Admin: 07/17/21 10:42 Dose: 25 mg Ondansetron HCl (Ondansetron Odt 4 Mg Tablet) 4 mg TL Q6HR PRN PRN Reason: Nausea / Vomiting Ondansetron HCl (Ondansetron 4 Mg/2 Ml Vial) 4 mg IVP Q6HR PRN PRN Reason: Nausea / Vomiting Oxycodone HCl (Oxycodone 5 Mg Tablet) 5 mg PO Q4HR PRN PRN Reason: Pain 5 to 7 Sodium Chloride (Sodium Chloride Flush 0.9% 10 Ml Syringe) 10 ml IVP PRN PRN PRN Reason: NEEDED PER PROVIDER ORDERS Last Admin: 07/17/21 06:11 Dose: 10 ml Sodium Chloride (Sodium Chloride Flush 0.9% 10 Ml Syringe) 10 ml IVP 0100,0900,1700 [facility] Last Admin: 07/17/21 10:24 Dose: 10 ml Felodipine [Felodipine ER] 10 mg PO DAILY 07/30/13 Insulin Aspart [NovoLOG] 10 units SUBQ BID 11/06/18 Insulin Glargine,Hum.rec.anlog [Basaglar Kwikpen U-100] 40 unit SUBQ DAILY 11/06/18 Olmesartan Medoxomil [Benicar] 40 mg PO DAILY 07/17/21 Objective - Vital Signs/Intake & Output Reviewed Vital Signs: Yes Vital Signs: Vital Signs x48h Temp Pulse Resp BP BP Pulse Ox 07/17/21 13:58 21 94 07/17/21 12:40 36.3 C L 65 18 125/80 98 07/17/21 10:42 130/85 H 07/17/21 10:28 94 07/17/21 08:06 18 96 07/17/21 07:40 36.3 C L 76 16 135/90 H 95 Intake & Output: Intake & Output 07/14/21 07/15/21 07/16/21 07/17/21 23:59 23:59 23:59 23:59 Intake Total 720 960 Output Total 1830 1250 Balance -1110 -290 - Objective General Appearance: positive: Alert, Mild distress (Just got back in bed from the bathroom and he is tachypneic, struggling for air, tripoding. Within 3 minutes he is able to sit back and relax in bed and speak to me.), Other (Elderly gentleman with long hair in a ponytail, long disheveled rodrigues. Thin.) Eyes Bilateral: positive: PERRL, EOMI ENT: positive: Pharynx nml Neck: positive: No JVD. negative: Stiff neck Respiratory: positive: Rales (at bases, L > R). negative: Wheezes, Rhonchi Cardiovascular: positive: Irregularly irregular, Systolic murmur. negative: Gallop/S4, Friction rub Abdomen: positive: Non-tender, No organomegaly, Nml bowel sounds, No distention Skin: positive: Warm, Dry Extremities: positive: Full ROM, Pedal edema (mild) Neurologic/Psychiatric: positive: Oriented x3, CN's nml (2-12), Motor nml, Sensation nml - Lab Results Fish Bones: 07/16/21 14:00 07/17/21 10:55 Other Labs: Lab Results x24hrs 07/17/21 07/17/21 07/17/21 Range/Units 10:55 10:55 10:55 D-Dimer (200.0-255.0) ng/mL Sodium 137 (135-145) mmol/L Potassium 4.8 (3.5-5.0) mmol/L Chloride 101 (101-111) mmol/L Carbon Dioxide 25 (21-32) mmol/L Anion Gap 11.0 (6-13) BUN 48 H (6-20) mg/dL Creatinine 2.4 H (0.6-1.2) mg/dL Estimated GFR (MDRD) 27 L (>89) Glucose 174 H (70-100) mg/dL Calcium 8.6 (8.5-10.3) mg/dL Magnesium (1.7-2.8) mg/dL Total Bilirubin (0.2-1.0) mg/dL AST (10-42) IU/L ALT (10-60) IU/L Alkaline Phosphatase (42-121) IU/L Troponin I High Sens 51.3 H* (2.3-19.7) ng/L B-Natriuretic Peptide 1222 H (5-100) pg/mL Total Protein (6.7-8.2) g/dL Albumin (3.2-5.5) g/dL Globulin (2.1-4.2) g/dL Albumin/Globulin Ratio (1.0-2.2) Lipase (22-51) U/L TSH (0.34-5.60) uIU/mL Nasal Adenovirus (PCR) Nasal B. parapertussis DNA (PCR) Nasal Coronavir 229E PCR Nasal Coronavir HKU1 PCR Nasal Coronavir NL63 PCR Nasal Coronavir OC43 PCR Nasal Enterovir/Rhinovir PCR Nasal Influenza B PCR Nasal Influenza A PCR Nasal Parainfluen 1 PCR Nasal Parainfluen 2 PCR Nasal Parainfluen 3 PCR Nasal Parainfluen 4 PCR Nasal RSV (PCR) Nasal B.pertussis DNA PCR Nasal C.pneumoniae (PCR) Sesar Human Metapneumo PCR Nasal M.pneumoniae (PCR) Nasal SARS-CoV-2 (PCR) 07/16/21 07/16/21 07/16/21 Range/Units 16:53 16:44 16:44 D-Dimer 320.8 H (200.0-255.0) ng/mL Sodium (135-145) mmol/L Potassium (3.5-5.0) mmol/L Chloride (101-111) mmol/L Carbon Dioxide (21-32) mmol/L Anion Gap (6-13) BUN (6-20) mg/dL Creatinine (0.6-1.2) mg/dL Estimated GFR (MDRD) (>89) Glucose (70-100) mg/dL Calcium (8.5-10.3) mg/dL Magnesium (1.7-2.8) mg/dL Total Bilirubin (0.2-1.0) mg/dL AST (10-42) IU/L ALT (10-60) IU/L Alkaline Phosphatase (42-121) IU/L Troponin I High Sens 54.4 H* (2.3-19.7) ng/L B-Natriuretic Peptide (5-100) pg/mL Total Protein (6.7-8.2) g/dL Albumin (3.2-5.5) g/dL Globulin (2.1-4.2) g/dL Albumin/Globulin Ratio (1.0-2.2) Lipase (22-51) U/L TSH 1.82 (0.34-5.60) uIU/mL Nasal Adenovirus (PCR) Nasal B. parapertussis DNA (PCR) Nasal Coronavir 229E PCR Nasal Coronavir HKU1 PCR Nasal Coronavir NL63 PCR Nasal Coronavir OC43 PCR Nasal Enterovir/Rhinovir PCR Nasal Influenza B PCR Nasal Influenza A PCR Nasal Parainfluen 1 PCR Nasal Parainfluen 2 PCR Nasal Parainfluen 3 PCR Nasal Parainfluen 4 PCR Nasal RSV (PCR) Nasal B.pertussis DNA PCR Nasal C.pneumoniae (PCR) Sesar Human Metapneumo PCR Nasal M.pneumoniae (PCR) Nasal SARS-CoV-2 (PCR) 07/16/21 07/16/21 07/16/21 Range/Units 14:04 14:00 14:00 D-Dimer (200.0-255.0) ng/mL Sodium (135-145) mmol/L Potassium (3.5-5.0) mmol/L Chloride (101-111) mmol/L Carbon Dioxide (21-32) mmol/L Anion Gap (6-13) BUN (6-20) mg/dL Creatinine (0.6-1.2) mg/dL Estimated GFR (MDRD) (>89) Glucose (70-100) mg/dL Calcium (8.5-10.3) mg/dL Magnesium (1.7-2.8) mg/dL Total Bilirubin (0.2-1.0) mg/dL AST (10-42) IU/L ALT (10-60) IU/L Alkaline Phosphatase (42-121) IU/L Troponin I High Sens 49.3 H* (2.3-19.7) ng/L B-Natriuretic Peptide 929 H (5-100) pg/mL Total Protein (6.7-8.2) g/dL Albumin (3.2-5.5) g/dL Globulin (2.1-4.2) g/dL Albumin/Globulin Ratio (1.0-2.2) Lipase (22-51) U/L TSH (0.34-5.60) uIU/mL Nasal Adenovirus (PCR) NOT DETECTED Nasal B. parapertussis DNA (PCR) NOT DETECTED Nasal Coronavir 229E PCR NOT DETECTED Nasal Coronavir HKU1 PCR NOT DETECTED Nasal Coronavir NL63 PCR NOT DETECTED Nasal Coronavir OC43 PCR NOT DETECTED Nasal Enterovir/Rhinovir PCR NOT DETECTED Nasal Influenza B PCR NOT DETECTED Nasal Influenza A PCR NOT DETECTED Nasal Parainfluen 1 PCR NOT DETECTED Nasal Parainfluen 2 PCR NOT DETECTED Nasal Parainfluen 3 PCR NOT DETECTED Nasal Parainfluen 4 PCR NOT DETECTED Nasal RSV (PCR) NOT DETECTED Nasal B.pertussis DNA PCR NOT DETECTED Nasal C.pneumoniae (PCR) NOT DETECTED Sesar Human Metapneumo PCR NOT DETECTED Nasal M.pneumoniae (PCR) NOT DETECTED Nasal SARS-CoV-2 (PCR) NOT DETECTED 07/16/21 Range/Units 14:00 D-Dimer (200.0-255.0) ng/mL Sodium 137 (135-145) mmol/L Potassium 4.6 (3.5-5.0) mmol/L Chloride 105 (101-111) mmol/L Carbon Dioxide 22 (21-32) mmol/L Anion Gap 10.0 (6-13) BUN 41 H (6-20) mg/dL Creatinine 2.0 H (0.6-1.2) mg/dL Estimated GFR (MDRD) 33 L (>89) Glucose 325 H (70-100) mg/dL Calcium 8.5 (8.5-10.3) mg/dL Magnesium 1.9 (1.7-2.8) mg/dL Total Bilirubin 0.5 (0.2-1.0) mg/dL AST 18 (10-42) IU/L ALT 21 (10-60) IU/L Alkaline Phosphatase 94 (42-121) IU/L Troponin I High Sens (2.3-19.7) ng/L B-Natriuretic Peptide (5-100) pg/mL Total Protein 7.1 (6.7-8.2) g/dL Albumin 3.3 (3.2-5.5) g/dL Globulin 3.8 (2.1-4.2) g/dL Albumin/Globulin Ratio 0.9 L (1.0-2.2) Lipase 39 (22-51) U/L TSH (0.34-5.60) uIU/mL Nasal Adenovirus (PCR) Nasal B. parapertussis DNA (PCR) Nasal Coronavir 229E PCR Nasal Coronavir HKU1 PCR Nasal Coronavir NL63 PCR Nasal Coronavir OC43 PCR Nasal Enterovir/Rhinovir PCR Nasal Influenza B PCR Nasal Influenza A PCR Nasal Parainfluen 1 PCR Nasal Parainfluen 2 PCR Nasal Parainfluen 3 PCR Nasal Parainfluen 4 PCR Nasal RSV (PCR) Nasal B.pertussis DNA PCR Nasal C.pneumoniae (PCR) Sesar Human Metapneumo PCR Nasal M.pneumoniae (PCR) Nasal SARS-CoV-2 (PCR) Assessment/Plan - Problem List (1) Acute CHF (congestive heart failure) Impression: Pt's BNP elevated on admit at 929>>>1222 today. Pt's troponin has increased from 49.3 to 54.4 in four hours. This is felt to be "flat" and not significant for NSTEMI. Pt reports increasingly dyspneic and orthopneic over the course of a week and while it has improved between yesterday and today, still w sig hidalgo w minimal exertionof 10 feet. Pt was needing supplemental oxygen to maintain O2 saturation over 92% on admission but this am he is 94% on RA.. No edema noted by patient and upon exam. Overall he is improved from yesterday to today. However we have put him in acute kidney failure. Creatinine is gone from 2-2.4 with this. Plan: 1. Change to po lasix. 2. Stress test done today and pending results 3. change to inpatient status and goal for dc is to at least walk 25 feet w/o 02 or hidalgo to safely stay at home. Qualifiers: Heart failure type: unspecified Qualified Code(s): I50.9 - Heart failure, unspecified (2) Atrial fibrillation Conclusion/Plan: D-dimer was low yesterday and as such does not warrant a CT pulmonary a ngiogram for PE. His troponins are flat so not having an OK. He has had a stress test today and results are pending. Rate is currently controlled. Plan: Continue rate control with metoprolol 25 mg p.o. twice daily and anticoagulate with Eliquis. I will send prescriptions to his pharmacy to see which when he can afford. If he cannot afford the Eliquis, Xarelto, or Pradaxa, he may need to go on Coumadin. He will need an Echo in the outpatient setting. Qualifiers: Atrial fibrillation type: unspecified Qualified Code(s): I48.91 - Unspe cified atrial fibrillation (3) Dyspnea due to congestive heart failure Conclusion/Plan: Pt was on oxygen at admission with slightly increased work of breathing that is relieved by sitting upright. By this am he has improved and is on RA. Plan: 1. oxygen as needed and once he can ambulate enough to be safely at home, discharge. (4) Diabetes mellitus type 2 with complications, uncontrolled Conclusion/Plan: Pt is hyperglycemic 325. BUN and creatinine are elevated. Pt also peripheral neuropathy that has been ongoing for an unspecific amount of time. Plan: 1. BS control - sliding scale insulin 2. recheck BS 3. A1c in am (5) Acute on chronic kidney failure Impression: In 2018 his creatinine was 1.1. 2020 he was 1.6. By April of this year he was up to 2.4. He may have chronic kidney disease either to fluid status or he is developing chronic kidney disease from diabetes. With our diuresis he is gone from 2.0 on admission to 2.4 today. I am hoping that just changing him to p.o. diuretics will stop that rise from happening again. Qualifiers: Chronic kidney disease stage: stage 4 (severe)
--- NOTE | 2021-07-17 15:21 | Nuclear Medicine Report ---
PROCEDURE: Rest and exercise myocardial perfusion SPECT with gated imaging and ejection fraction INDICATIONS: new aatrial fib RADIOPHARMACEUTICAL: 11.3 mCi Tc-99m Myoview IV at rest and 35.0 mCi Tc-99m Myoview IV at peak exerc ise. [id number] was performed. TECHNIQUE: Radiopharmaceutical was injected at peak stress test, and also at rest. SPECT images wer e obtained. SPECT myocardial perfusion images were displayed in short axis, horizontal long axis, an d vertical long axis views. Gated images were reviewed using [employer] software. COMPARISON: Report of myocardial perfusion scan, 11/06/2011 (images not available). FINDINGS: Raw data: There is good myocardial labeling by radiotracer. No significant motion artifacts. Lung- to-heart ratio is 0.48 (normal is less than 0.46 for tetrafosmin tracer). Left ventricle function: Gated images demonstrate normal left ventricle wall thickening. There is ap ical and lateral wall dyskinesia. Anterior wall is mildly hypokinetic. No transient ischemic dilatio n; TID is 0.99 (normal less than 1.30). The left ventricle resting end-diastolic volume is 163 mL. Left ventricle stress ejection fraction is 36%; normal values are above 45%. Myocardial perfusion: There is a large, moderately severe, fixed perfusion defect involving the late ral wall of the left ventricle, consistent with myocardial infarction. A small, moderately severe, re versible perfusion defect is seen in the anterior apex, consistent with myocardial ischemia. IMPRESSION: Abnormal myocardial perfusion images. 1. A large, moderately severe, fixed perfusion defect involving the lateral wall of the left ventricl e, consistent with myocardial infarction. 2. A small, moderately severe, reversible perfusion defect in the anterior apex, consistent with bord er zone ischemia. 3. Mild left ventricular enlargement. The apex and lateral wall are dysninetic. There is mild hypokin esia in the anterior wall. The left ventricular ejection fraction is moderately decreased at 36%. 4. Elevated LHR, which is an independent predictor of adverse cardiac event. 5. The above findings are new when compared to the prior report dated 11/06/2011. 6. Please correlate with stress EKG result. The result was discussed with Dr. Hernandez. PQRS ATTESTATIONS: Measure 322 - Is this imaging test primarily performed on a low-risk surgery patient for preoperative evaluation within 30 days preceding their low-risk non-cardiac surgery? Low-risk surgery is defined as cardiac or myocardial infarction less than 1%, including (but not limited to) endoscopic pr ocedures, superficial procedures, cataract surgery, and excisional breast surgery: Answer: No Measure 323 - Is this imaging test performed primarily for the monitoring of an asymptomatic patient who had percutaneous coronary intervention on the visit date or within 2 years of the visit date? An swer: No Measure 324 - Is this imaging test performed primarily for the initial detection and risk assessment on an asymptomatic, low coronary heart disease patient? Low CHD risk definition = clinicians should consider the maximum number of available patient factors used to estimate risk based on [place] (A TP III criteria), typically age, gender, diabetes, smoking status, and use of blood pressure medicati on, and integrate age appropriate estimates for missing elements, such as LDL or standard blood press ure. Answer: No Reviewed by: Leelee Ivy MD on 07/17/2021 3:20 PM PDT Approved by: Leelee Ivy MD on 07/17/2021 3:20 PM PDT Station ID: [id number]
[2021-07-17] MEDS ORDERED: lisinopriL 5 MG TABLET PO SCH (18:26)
[2021-07-17] MEDS ORDERED: ATORVASTATIN 40 MG TABLET PO STA (18:29)
--- NOTE | 2021-07-17 18:32 | CARDIAC PROCEDURE NOTE ---
Stress Test Report Service Date: 07/17/21 Service Time: 10:30 Ordering Provider: Antonette Hernandez MD Indication for Test: new onset atrial fib with acute CHF Significant Medical History: This gentleman has high blood pressure and hyperlipidemia, as well as type 2 diabetes mellitus (but he denies that history). He presented to our emergency room with gradually increasing shortness of breath over the course of a week. He states it got harder and harder to do simple things as he walked the 30 feet in his trailer. He is relatively sedentary anyway but the 30 feet in his trailer started getting more more impossible. The shortness of breath was with exertion, and by today shortness of breath is at rest. He denies cough, fever, congestion, edema. He has been having bouts of dizziness and fatigue but denies palpitations. In the emergency room he is hypoxic to 88% on room air. He has an irregularly irregular heart rate, and troponins have been relatively flat at 54, 51 and 49. EKG shows new onset atrial fibrillation with a heart rate of 100. He has been diuresed but creatinine is gone from 2-2.4. His rate is controlled with the beta-jose. We are now doing a stress test to assess for reversible ischemia and ejection fraction indirectly. 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 Cardiac Risk Factors: Male sex, hypertension, hyperlipidemia, disputed history of diabetes, positive family history of heart attack in a first-degree relative less than the age of 65 Type of Stress Test: Pharmacologic Stress Test with MPI Procedure: Patient was informed of the risk and benefits of doing the stress test. Side effects were discussed. He signed informed consent. Baseline EKG had atrial flutter with a rate of 71. Poor R wave progression, nonspecific ST-T wave changes. Blood pressure was 129/78. With Lexiscan injection, the patient had immediate nausea and sensation of upper abdominal tightening that was quite uncomfortable. But he denied chest pain, shortness of breath, diaphoresis. His O2 sats remained normal. Blood pressure remained relatively stable and unchanged. There were no changes on his EKG other than slight tachycardia with the injection of Lexiscan. His EKG was not diagnostic of any ischemic changes. The patient went on to have, under separate dictation by radiology, a nuclear medicine imaging at stress and rest. He has a large, moderately severe, fixed perfusion defect involving the lateral wall of the left ventricle, consistent with myocardial i nfarction. He has a moderately severe, reversible perfusion defect in the anterior apex consistent with border zone ischemia. He has mild left ventricular enlargement. The apex and lateral wall are dyskinetic. Mild hypokinesia of the anterior wall. Left ventricular ejection fraction is moderately decreased at 36%. He has an elevated LHR which is an independent predictor of adverse cardiac event. He had a previous stress test in November 06, 2011 and that stress test was considered "normal". Radiology is unable to find those images but the verbal report is that it had normal wall motion, normal ejection fraction. Summary: The patient presents with new onset atrial fibrillation, and congestive heart failure on exam. Nuclear medicine stress testing confirms that the patient has had a myocardial event in the past, and possibly at risk for a new myocardial event. He will be started on PAULO inhibitor, Coreg, statin, and is already on Eliquis due to the atrial fibrillation. I will present this case to an outside facility/higher level of care. I explained to the patient the results of this test. Options would be: 1. Medical management here at this institution with possible increased risk of new infarction that we cannot treat. I would recommend that course if he felt that his quality of life was no longer that he wanted intervention. Or if he just philosophically opposed interventions. 2. Transfer to higher level of care for definitive cardiac evaluation The patient stated that he would like to be evaluated. This is frightening to him and he does know what is going to happen but he would rather be evaluated than not.
[2021-07-17] MEDS ORDERED: carvediloL 3.125 MG TABLET PO SCH (21:00)
[2021-07-17 21:14] VITALS: BP 91/47
--- NOTE | 2021-07-17 21:31 | DISCHARGE SUMMARY ---
"Discharge Summary Admit Date: 07/16/21 Discharge Date: 07/17/21 Discharging Provider: Antonette Hernandez MD Primary Care Provider: TAYE Wynne Code Status: Attempt Resuscitation Condition at Discharge: Poor Discharge Disposition: 02 Transfer Acute Care Hosp - DIAGNOSES Discharge Diagnoses with Status of Each Condition: 1. Acute on chronic congestive heart failure 2. New onset atrial fibrillation 3. Abnormal stress test 4. Short of breath on exertion 5. Uncontrolled type 2 diabetes mellitus with hyperglycemia without long-term current use of insulin - HPI History of Present Illness: Pt is a 70 year old male who presented to the ED with a c/o of SOB. Pt reports that SOB has been worsening for the past week at first with activity, then at rest. Pt does not report chest pain, cough, or edema at any location. Pt does report increasing bouts of dizziness and fatigue. Pt's oxygen saturation in the ED was 88% and improved to 96% on 4L. Pt is a reliable and motivated historian. He is sitting up in the stretcher and is able to speak in clear sentences. - Past Medical History Cardiovascular: reports: Hypertension, High cholesterol, Other (new onset) Respiratory: reports: Other Endocrine/Autoimmune: reports: Type 2 diabetes GI: reports: None : reports: None HEENT: reports: None Psych: reports: None Musculoskeletal: reports: None, Other (neuropathy r/t DM) MRSA Hx?: No - Past Surgical History General: reports: Other (Empyema drained in 2013) - CONSULTS | PROCEDURES Procedures: Chest x-ray with bibasilar pneumonia versus atelectasis, pleural effusion, bilateral edema versus atypical pneumonia Myocardial perfusion scan done after Lexiscan injection showed a large, modera tely severe, fixed perfusion defect involving the lateral wall of the left ventricle consistent with myocardial infarction. He has a small moderately severe reversible perfusion defect in the anterior apex, consistent with border zone ischemia. Ejection fraction is 36%. Elevated LHR which is an independent predictor of adverse cardiac event. These findings are new when compared to her prior report from November 06, 2011. - HOSPITAL COURSE Hospital Course: The patient was placed in observation status with the idea that we would diurese him for probable new congestive heart failure, control his heart rate, anticoagulate him. We do not have echocardiogram at our facility and assess were not able to assess valvular heart disease or ejection fraction or atrial size. With diuresis he has baseline kidney function which is usually 1.0 was already 2.0 on admission and became 2.4. Troponins were flat at 49, 54, 51. In an effort to try and quantify some of his dysfunction, we did a nuclear medicine stress test with Lexiscan. EKG portion was unremarkable. He did have symptoms of abdominal discomfort with the test. Nuclear medicine stress test was markedly abnormal. I discussed the case with Dr. Grayson Wadsworth, cardiology at [facility]. The patient had identified [facility] as where he wanted to go but they had no beds and were boarding people in the ER. I also called [facility] and they were boarding patients in the ED. After discussion with the case with Dr. Wadsworth, he felt that the patient wou ld be appropriate for their facility and asked that I contact the hospitalist group. Dr. Juice Valencia accepted the patient in transfer. The patient lives in a 30 foot trailer and he is able to walk the length of his trailer normally. Starting last week he started having less and less ability to navigate the length of the trailer. By the time he was admitted he was short of breath just sitting and trying to eat. With our hospitalization diuresis did improve his shortness of breath. Resulted in reduced oxygen need. He was able to speak now and get out of bed and walk a couple of feet to sit in a chair. What made him short of breath was walking to the bathroom 10 feet and back 10 feet. It would take him 2 to 3 minutes to recover. For his diabetes we did sliding scale insulin. The patient's glucose was 325 on admission and was 196 on the time of discharge. On exam temperature was 36.4. Pulse was 74 and irregular. Blood pressure 91/47 whereas it been 125/80. Respirations 18. 95% on room air now. When he was admitted he was requiring 3 to 4 L with an O2 sat of 85% on room air. So his oxygenation need his reduced. He has some JVD. Lungs still have crackles at the bases. He has a slow irregular rate and rhythm. Abdomen is soft, nontender with normal bowel sounds that are slightly hypoactive. He does not have any leg edema. Greater than 30 minutes was spent coordinating discharge.While here the patient was treated with Eliquis, Lasix. Later in the afternoon Omaira lisinopril and atorvastatin were ordered. - ALLERGIES Allergies/Adverse Reactions: Allergies Allergy/AdvReac Type Severity Reaction Status Date / Time No Known Drug Allergies Allergy Verified 07/16/21 13:01 - MEDICATIONS Home Medications: Ambulatory Orders Medication Instructions Recorded Confirmed Felodipine [Felodipine ER] 10 mg PO DAILY 07/30/13 07/17/21 Insulin Aspart [NovoLOG] 10 units SUBQ BID 11/06/18 07/17/21 Insulin Glargine,Hum.rec.anlog 40 unit SUBQ DAILY 11/06/18 07/17/21 [Basaglar Cyndee U-100] Apixaban [Eliquis] 5 mg PO BID #60 tablet 07/17/21 Olmesartan Medoxomil [Benicar] 40 mg PO DAILY 07/17/21 07/17/21 - LABS Result Diagrams: 07/16/21 14:00 07/17/21 10:55"
== END 2021-07-17 23:00 | disposition short-term general hospital (02) | DRG 291 ==
LOC: ED 12:59 → MS2 16:29 → OBSVTOIN 07-17 14:15
PROVIDERS: ADMIT Specialist; ATTEND Specialist
DX: I11.0 Hypertensive heart disease with heart failure (principal); I13.0 Hypertensive heart and chronic kidney disease with heart failure and stage 1 through stage 4 chronic kidney disease, or unspecified chronic kidney disease; I50.23 Acute on chronic systolic (congestive) heart failure; I25.10 Atherosclerotic heart disease of native coronary artery without angina pectoris; N17.9 Acute kidney failure, unspecified; N18.9 Chronic kidney disease, unspecified; E11.40 Type 2 diabetes mellitus with diabetic neuropathy, unspecified; E11.65 Type 2 diabetes mellitus with hyperglycemia; E78.00 Pure hypercholesterolemia, unspecified; Z20.822 Contact with and (suspected) exposure to COVID-19; I48.91 Unspecified atrial fibrillation; I49.9 Cardiac arrhythmia, unspecified; R42 Dizziness and giddiness; R94.39 Abnormal result of other cardiovascular function study; Z79.01 Long term (current) use of anticoagulants; Z79.4 Long term (current) use of insulin; Z79.82 Long term (current) use of aspirin; Z79.84 Long term (current) use of oral hypoglycemic drugs; Z79.899 Other long term (current) drug therapy; Z82.49 Family history of ischemic heart disease and other diseases of the circulatory system; Z83.3 Family history of diabetes mellitus; Z86.73 Personal history of transient ischemic attack (TIA), and cerebral infarction without residual deficits; Z87.891 Personal history of nicotine dependence
CPT/HCPCS: 36415; 71045; 78452; 80048; 80053; 83690; 83735; 83880; 84443; 84484; 85025; 85379; 87633; 93005; 93017; 94640; 96365; 96375; 96376; 99285; A9270; A9500; J2785; 99283

== ENCOUNTER 2021-07-26 11:34 | Emergency (ER) | payer MEDICARE, MEDICAID ==
--- OUTSIDE RECORDS SUMMARY | 2021-07-26 11:48 | EXTERNAL MEDICAL SUMMARY RPT | Continuity of Care Document ---
:1950 Author Organization [place] Address [address] [phone] Phone Allergies No information. Encounters No information. Medications No information. Problems date description facility [id number] afib/rvr [facility] [id number] Non-ST elevation (NSTEMI) myocardial [facility] infarction [id number] Gross hematuria [facility] Results No information.
[2021-07-26 11:49] VITALS: BP 148/90
--- NOTE | 2021-07-26 12:05 | ED Physician Documentation ---
PD HPI MALE - Stated complaint Stated Complaint: CATH BAG CHANGE - Chief complaint Chief Complaint: General - History obtained from History obtained from: Patient - History of Present Illness Timing - onset: How many days ago (he states has had the sharma about a week when in hospital at [facility], discharged yesterday with sharma/leg bag. Having pain in penis/tip. Did not have night bag. He is going to have home health PT starting next week. Has appt with Urologist on .) Timing - duration: Days Timing - details: Gradual onset, Still present Associated symptoms: Discharge (from meatus around the sharma), Indwelling catheter (for the past week) PD HPI MALE CONTRIB FACTORS: No: Sexually active Similar symptoms before: Has not had sx before Recently seen: Emergency Dept, Admitted (for CHF, dyspnea, urinary retention.) Review of Systems Constitutional: denies: Fever, Chills Musculoskeletal: denies: Back pain PD PAST MEDICAL HISTORY - Past Medical History Cardiovascular: Hypertension, High cholesterol, Other (no known history of atrial fib. ) Respiratory: Other Endocrine/Autoimmune: Type 2 diabetes GI: None : None HEENT: None Psych: None Musculoskeletal: None - Past Surgical History Past Surgical History: No General: Other - Present Medications Home Medications: Ambulatory Orders Medication Instructions Recorded Confirmed Felodipine [Felodipine ER] 10 mg PO DAILY 07/30/13 07/17/21 Insulin Aspart [NovoLOG] 10 units SUBQ BID 11/06/18 07/17/21 Insulin Glargine,Hum.rec.anlog 40 unit SUBQ DAILY 11/06/18 07/17/21 [Basaglar Kwikpen U-100] Apixaban [Eliquis] 5 mg PO BID #60 tablet 07/17/21 Olmesartan Medoxomil [Benicar] 40 mg PO DAILY 07/17/21 07/17/21 Doxycycline Hyclate 100 mg PO BID 7 Days #14 cap 07/26/21 HYDROcod/ACETAM 5/325 [Wharton 5/325] 1 ea PO Q6H PRN #12 tablet 07/26/21 Lidocaine Ointment 5% [Xylocaine 1 applic TOP QID PRN #35.44 gm 07/26/21 Ointment 5%] - Allergies Allergies/Adverse Reactions: Allergies Allergy/AdvReac Type Severity Reaction Status Date / Time No Known Drug Allergies Allergy Verified 07/26/21 11:42 - Social History Does the pt smoke?: Yes Smoking Status: Former smoker Does the pt drink ETOH?: Yes Does the pt have substance abuse?: No - Immunizations Immunizations are current?: Yes - POLST Patient has POLST: No POLST Status: Full Code PD ED PE NORMAL - Vitals Vital signs reviewed: Yes - General General: Alert and oriented X 3, No acute distress. No: Well developed /nourished (developed, but unkempt long rodrigues and hair.) - Male Male : Other (sharma in place to leg bag. Urine appears clear. The penile meatus with thick yellow mucoid drainage and redness of skin at tip around the sharma tubing. Scrotum not tender nor swollen. ) - Derm Derm: Normal color, Warm and dry Results - Vitals Vitals: Vital Signs - 24 hr 07/26/21 11:44 Temperature 36.8 C Heart Rate 122 H Respiratory 20 Rate Blood Pressure 148/90 H O2 Saturation 92 Oxygen O2 Source Room air - Labs Labs: Microbiology 07/26/21 12:00 Wound Culture - Preliminary Skin - Indwelling Catheter PD MEDICAL DECISION MAKING - ED course Complexity details: considered differential (has sharma in. Compains of burning in penis. Has some meatal discharge. Urine output appears clear. Culture of meatus. Has leg bag, he is given night bag.), d/w patient ED course: appearing skin infection of meatus/urethra, and not in urine itself. Departure - Departure Disposition: 01 Home, Self Care Clinical Impression: Urethral discharge in male, Pain of male genitalia Condition: Stable Record reviewed to determine appropriate education?: Yes Follow-Up: Tasneem Tena PA-C [Primary Care Provider] - Prescriptions: Doxycycline Hyclate 100 mg PO BID 7 Days #14 cap HYDROcod/ACETAM 5/325 [Wharton 5/325] 1 ea PO Q6H PRN #12 tablet PRN Reason: Pain Lidocaine Ointment 5% [Xylocaine Ointment 5%] 1 applic TOP QID PRN #35.44 gm PRN Reason: Pain Comments: It does look likely to be a skin infection around the meatus of the penis and that would be likely causing the irritation and pain. We did do a culture of it and that should result in a couple of days. We will call you if we need to change the antibiotic choice based on that. For now use doxycycline twice daily for a week. You can use lidocaine ointment to the tip of the penis to help with some of the discomfort from the catheter in the infection. Clean the area with just soap and water couple times a day. Add Tylenol or hydrocodone if needed for pain. Follow-up with the urologist on the as planned. I transmitted prescriptions to [facility] pharmacy in [place]. I am prescribing a short course of narcotic pain medication for you. These are potentially dangerous and addictive medications that should be used carefully. These medications may constipate you. Take an [id number] stool softener such as docusate twice daily with plenty of water while taking these medications. If you go 24 hours without a bowel movement, take [id number] MiraLAX, per package instructions. Do not drink or drive while taking these medications. If you received narcotic or sedating medications while in the emergency department do not drive for 24 hours. Store this medication in a safe, secure place and out of reach of children. It is a violation of federal law to give or sell this medication to another person or to use in a manner other than prescribed. The ED will not refill narcotic prescriptions, including prescriptions lost or stolen. You can dispose of unwanted medications at the [facility] office or at several pharmacies such as [facility]. Discharge Date/Time: 07/26/21 12:42
[2021-07-26] MEDS ORDERED: HYDROcod/ACETAM 5/325 MG TABLET PO STA (12:07)
[2021-07-26] MEDS ORDERED: DOXYCYCLINE 100 MG TABLET PO STA (12:07)
[2021-07-26] MEDS ORDERED: LIDOCAINE OINTMENT 5% 35.44 GM TUBE TOP STA (12:07)
== END 2021-07-26 12:42 | disposition home or self-care (01) ==
LOC: ED 11:34
DX: T83.84XA Pain due to genitourinary prosthetic devices, implants and grafts, initial encounter (principal); E11.9 Type 2 diabetes mellitus without complications; Z79.4 Long term (current) use of insulin; Z87.891 Personal history of nicotine dependence; I10 Essential (primary) hypertension
CPT/HCPCS: 87070; 87181; 87205; 99282; 99283; A9270

== ENCOUNTER 2021-08-09 15:04 | Outpatient (CLI) | payer MEDICARE, MEDICAID | END 2021-08-09 15:05 | disposition critical access hospital (66) | LOC: EMS 15:04 | DX: R07.9 Chest pain, unspecified (principal); V58.5XXA Driver of pick-up truck or van injured in noncollision transport accident in traffic accident, initial encounter; Y92.410 Unspecified street and highway as the place of occurrence of the external cause | CPT/HCPCS: A0425; A0429 ==

== ENCOUNTER 2021-08-09 15:31 | Emergency (ER) | payer MEDICARE, MEDICAID ==
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
[2021-08-09] MEDS ORDERED: SODIUM CHLORIDE 0.9% 1,000 ML IV STA (15:42)
[2021-08-09] MEDS ORDERED: ONDANSETRON 4 MG/2 ML VIAL IVP STA (15:42)
[2021-08-09] MEDS ORDERED: fentaNYL 100 MCG/2 ML VIAL IVP STA (15:42)
--- OUTSIDE RECORDS SUMMARY | 2021-08-09 15:48 | EXTERNAL MEDICAL SUMMARY RPT | Continuity of Care Document ---
:1950 Author Organization [place] Address [address] [place] [address] Phone Allergies No information. Encounters No information. Medications No information. Problems date description facility [id number] Unspecified atrial fibrillation [facility] [id number] Type 2 diabetes mellitus with [facility] ketoacidosis without coma [id number] Type 2 diabetes mellitus with [facility] hyperglycemia [id number] Type 2 diabetes mellitus with diabetic [facility] chronic kidney disease [id number] Other persistent atrial fibrillation [facility] [id number] Other abnormalities of gait and [facility] mobility [id number] Obesity, unspecified [facility] [id number] Non-ST elevation (NSTEMI) myocardial [facility] infarction [id number] assisted (current) use of insulin [facility] [id number] 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 and stage 1 through stage 4 chronic kidney disease, or unspecified chronic kidney disease [id number] Hyperlipidemia, unspecified [facility] [id number] Gross hematuria [facility] [id number] Essential (primary) hypertension [facility] [id number] Encounter for fitting and adjustment of [facility] urinary device [id number] Chronic kidney disease, unspecified [facility] [id number] Cardiomyopathy, unspecified [facility] [id number] Body mass index [BMI] 34.0-34.9, adult [facility] [id number] Acute systolic (congestive) heart [facility] failure [id number] Acute kidney failure, unspecified [facility] [id number] afib/rvr [facility] [id number] Non-ST elevation (NSTEMI) myocardial [facility] infarction [id number] Gross hematuria [facility] Results No information.
[2021-08-09 15:50] LABS: BASOPHILS % (AUTO) 0.4 %; EOSINOPHILS % (AUTO) 0.4 %; HCT - HEMATOCRIT 26.9 % (42.0-52.0); HGB - HEMOGLOBIN 8.3 g/dL (14.0-18.0); LYMPHOCYTES # (AUTO) 0.5 10^3/uL (1.5-3.5); LYMPHOCYTES % (AUTO) 3.9 %; MEAN CORPUSCULAR HEMOGLOBIN 26.9 pg (27.0-31.0); MEAN CORPUSCULAR HGB CONC 30.9 g/dL (32.0-36.0); MEAN CORPUSCULAR VOLUME 87.1 fL (80.0-94.0); MEAN PLATELET VOLUME 9.8 fL (7.4-11.4); MONOCYTES # (AUTO) 0.7 10^3/uL (0.0-1.0); MONOCYTES % (AUTO) 5.9 %; NEUTROPHILS # (AUTO) 10.1 10^3/uL (1.5-6.6); NEUTROPHILS % (AUTO) 88.2 %; PLT - PLATELET COUNT 379 10^3/uL (130-450); RED BLOOD COUNT 3.09 10^6/uL (4.70-6.10); RED CELL DISTRIBUTION WIDTH 15.7 % (12.0-15.0); WHITE BLOOD COUNT 11.4 x10^3/uL (4.8-10.8)
[2021-08-09 15:57] LABS: PT - PROTHROMBIN TIME 22.3 secs (9.9-12.6)
[2021-08-09 15:59] LABS: ALBUMIN 2.7 g/dL (3.2-5.5); ALBUMIN/GLOBULIN RATIO 0.8 (1.0-2.2); ALKALINE PHOSPHATASE 130 IU/L (42-121); ALT ALANINE AMINOTRANSFERASE 52 IU/L (10-60); AST ASPARTATE AMINOTRANSFERASE 40 IU/L (10-42); BILIRUBIN,TOTAL 0.6 mg/dL (0.2-1.0); CALCIUM 7.9 mg/dL (8.5-10.3); CARBON DIOXIDE - CO2 26 mmol/L (21-32); CHLORIDE 101 mmol/L (101-111); CREATININE 2.6 mg/dL (0.6-1.2); ETOH - ETHANOL < 5.0 mg/dL; GFR - MDRD 24 (>89); GLUCOSE 320 mg/dL (70-100); LIPASE 26 U/L (22-51); POTASSIUM 4.2 mmol/L (3.5-5.0); SODIUM 135 mmol/L (135-145); TOTAL PROTEIN 6.2 g/dL (6.7-8.2)
[2021-08-09 16:02] LABS: BUN - BLOOD UREA NITROGEN 88 mg/dL (6-20)
[2021-08-09] MEDS ORDERED: HYDROmorphone 1 MG/ML CARPUJECT IVP STA ×2 (16:48→19:57)
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
--- NOTE | 2021-08-09 18:18 | CT Report ---
PROCEDURE: Abdomen/Pelvis WO INDICATIONS: trama TECHNIQUE: Noncontrast 5 mm thick sections acquired from the diaphragms to the symphysis. 5 mm coronal and sagi ttal reformats were then performed. For radiation dose reduction, the following was used: automated exposure control, adjustment of mA and/or kV according to patient size. COMPARISON: None. FINDINGS: Image quality: Prominent motion and soft tissue artifact is present limiting areas of fine detail alejandro luation. ABDOMEN: Lung bases: Moderate right and mild left pleural effusions are present superimposed consolidations. L ow-attenuation focus is present in the aorticopulmonary window. Large hiatal hernia. Heart size is no rmal. Solid organs: Liver and spleen are normal in size. Gallbladder is unremarkable Pancreas is normal in contours. No adrenal nodules. Kidneys are atrophic in size, without hydronephrosis or nephrolith iasis. Peritoneum and bowel: Unenhanced bowel loops demonstrate normal wall thickness and caliber. No free fluid or air. Colonic diverticula are present. Nodes and vessels: No retroperitoneal or mesenteric adenopathy by size criteria. Aorta and inferior vena cava are normal in caliber. Miscellaneous: No ventral hernias. PELVIS: Genitourinary: Bladder wall thickness is normal. Miscellaneous: Fat-containing inguinal hernias are present. Bones: No suspicious bony lesions. Compression deformity at T12 is present, unchanged since 2014. Pa rtially visualized sternal fracture is present. Questionable posterior right 11th and 12th rib fractu res. IMPRESSION: Bilateral effusions with superimposed consolidations. Questionable, posterior right 11th and 12th rib fractures. Aorticopulmonary window mass. Please see CT chest report of 08/09/2021 for further details. Partially visualized sternal fracture. Please see CT chest report of 08/09/2021 for further details. No visualized acute osseous or visceral injury within the abdomen or pelvis. Diverticulosis. Reviewed by: Rashida Walker MD on 08/09/2021 6:17 PM PDT Approved by: Rashida Walker MD on 08/09/2021 6:17 PM PDT Station ID: [id number]
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
[2021-08-09 19:32] VITALS: BP 113/75
[2021-08-09 19:33] LABS: MUDS CUTOFF CONCENTRATIONS CUTOFF CONC BELOW:
[2021-08-09 19:36] LABS: BILIRUBIN,URINE NEGATIVE (NEGATIVE); GLUCOSE, URINE (UA) 100 mg/dL (NEGATIVE); KETONES,URINE (UA) NEGATIVE (NEGATIVE); LEUKOCYTE ESTERASE, URINE NEGATIVE (NEGATIVE); NITRITE,URINE NEGATIVE (NEGATIVE); OCCULT BLOOD,URINE SMALL (NEGATIVE); PROTEIN,URINE 100 mg/dL (NEGATIVE); UROBILINOGEN,URINE 0.2 (NORMAL) E.U./dL (NORMAL)
[2021-08-09 19:46] LABS: CLARITY,URINE CLEAR (CLEAR)
[2021-08-09 19:47] LABS: AMPHETAMINE SCREEN,URINE NEGATIVE (NEGATIVE); BACTERIA,URINE None Seen /HPF (None Seen); BENZODIAZEPINES SCREEN, URINE NEGATIVE (NEGATIVE); COCAINE SCREEN URINE NEGATIVE (NEGATIVE); METHAMPHETAMINES SCREEN, URINE NEGATIVE (NEGATIVE); OPIATE SCREEN, URINE NEGATIVE (NEGATIVE); RBC,URINE 0-5 /HPF (0-5); SQUAMOUS EPITHELIAL CELL,UR NONE SEEN (<= Few); THC CANNABINOID SCREEN, URINE NEGATIVE (NEGATIVE); TRICYCLIC ANTIDEPRESSANT,URINE NEGATIVE (NEGATIVE); WBC,URINE 0-3 /HPF (0-3)
[2021-08-09 19:48] LABS: BARBITURATE SCREEN,UR NEGATIVE (NEGATIVE); METHADONE SCREEN, URINE NEGATIVE (NEGATIVE); OXYCODONE SCREEN, URINE NEGATIVE (NEGATIVE); PROPOXYPHENE SCREEN, URINE NEGATIVE (NEGATIVE)
[2021-08-09 20:43] LABS: B. PARAPERTUSSIS- RESP PCR PAN NOT DETECTED; B. PERTUSSIS- RESP PCR PANEL NOT DETECTED; C. PNEUMONIAE- RESP PCR PANEL NOT DETECTED; CORONAVIRUS 229E-RESP PCR NOT DETECTED; CORONAVIRUS HKU1-RESP PCR NOT DETECTED; CORONAVIRUS NL63-RESP PCR NOT DETECTED; CORONAVIRUS OC43-RESP PCR NOT DETECTED; HUMAN METAPNEUMOVIRUS NOT DETECTED; INFLUENZA A- RESP PCR PANEL NOT DETECTED; INFLUENZA B - RESP PCR PANEL NOT DETECTED; M. PNEUMONIAE- RESP PCR PANEL NOT DETECTED; PARAINFLUENZA VIRUS 1 NOT DETECTED; PARAINFLUENZA VIRUS 2 NOT DETECTED; PARAINFLUENZA VIRUS 3 NOT DETECTED; PARAINFLUENZA VIRUS 4 NOT DETECTED; RHINOVIRUS/ENTEROVIRUS NOT DETECTED; RSV- RESP PCR PANEL NOT DETECTED; SARS-CoV-2 -RESP PCR PANEL NOT DETECTED
== END 2021-08-09 20:19 | disposition short-term general hospital (02) ==
LOC: EDUNIT# → ED 15:31
DX: S00.01XA Abrasion of scalp, initial encounter (principal); S22.20XA Unspecified fracture of sternum, initial encounter for closed fracture; V49.9XXA Car occupant (driver) (passenger) injured in unspecified traffic accident, initial encounter; I48.91 Unspecified atrial fibrillation; Z79.01 Long term (current) use of anticoagulants; Z87.891 Personal history of nicotine dependence; E11.22 Type 2 diabetes mellitus with diabetic chronic kidney disease; I12.9 Hypertensive chronic kidney disease with stage 1 through stage 4 chronic kidney disease, or unspecified chronic kidney disease; N18.9 Chronic kidney disease, unspecified; J44.9 Chronic obstructive pulmonary disease, unspecified; Z20.822 Contact with and (suspected) exposure to COVID-19
CPT/HCPCS: 36415; 51702; 70450; 71250; 72125; 74176; 80053; 80306; 81001; 82272; 83690; 85025; 85610; 87633; 93005; 96374; 96375; 96376; 99285; G0480; J1170; 80320; 81003; 87086

== ENCOUNTER 2021-08-09 20:16 | Outpatient (CLI) | payer MEDICARE, MEDICAID | END 2021-08-09 20:17 | disposition short-term general hospital (02) | LOC: EMS 20:16 | PROVIDERS: ATTEND Emergency Medicine | DX: S22.41XA Multiple fractures of ribs, right side, initial encounter for closed fracture (principal); S22.20XA Unspecified fracture of sternum, initial encounter for closed fracture; V48.5XXA Car driver injured in noncollision transport accident in traffic accident, initial encounter; Y92.410 Unspecified street and highway as the place of occurrence of the external cause | CPT/HCPCS: A0425; A0426 ==